=== PATIENT | female | born 1970 | race Caucasian/White ===

== ENCOUNTER 2016-10-06 13:09 | Emergency (ER) | payer BC ==
[2016-10-06 15:33] VITALS: BP 119/74
--- NOTE | 2016-10-06 15:48 | UC ---
Shoulder Pain HPI - HPI Summary HPI Summary: for past 3 days, pain in right shoulder limited rom, denies any trauma/injury. she woke up with these sx on 1/10 AM. She is rt hand dominant. she works on the computer all day every day. denies neck pain. she had numbing and tingling in the arm yesterday down to her hand and fingers but not today. She does feel weakness in the hand. she took ibuprofen 600mgs this morning with decent relief. she has not seen ortho in recent past. she did have injury to this arm many years ago as teen. Pain is described in anterior shoulder with point tenderness. denies fevers and chills. - History of Current Complaint Chief Complaint: UCUpperExtremity Stated Complaint: RIGHT SHOULDER INJURY Time Seen by Provider: 10/06/16 15:47 Hx Last Menstrual Period: 09/20/16 - Allergies/Home Medications Allergies/Adverse Reactions: Allergies Allergy/AdvReac Type Severity Reaction Status Date / Time environmental Allergy Eyes Uncoded 10/06/16 15:33 Itchy/Swollen/Red/Watery Home Medications: Home Medications Ibuprofen TAB* [Motrin TAB* 600 MG] 600 mg PO Q8H PRN 10/06/16 [History Confirmed 10/06/16] PMH/Surg Hx/FS Hx/Imm Hx Previously Healthy: Yes Endocrine History Of: Reports: Thyroid Disease - hypo Respiratory History Of: Reports: Asthma - Surgical History Surgical History: Yes Surgery Procedure, Year, and Place: right arm 1983, metal plate installed, then removed - Family History Known Family History: Negative: Diabetes - Social History Alcohol Use: Occasionally Substance Use Type: None Smoking Status (MU): Never Smoked Tobacco Review of Systems Constitutional: Negative Skin: Negative Eyes: Negative ENT: Negative Respiratory: Negative Cardiovascular: Negative Gastrointestinal: Negative Genitourinary: Negative Motor: Decreased ROM, Weakness Neurovascular: Negative Musculoskeletal: Negative Neurological: Negative Psychological: Negative All Other Systems Reviewed And Are Negative: Yes Physical Exam Triage Information Reviewed: Yes Appearance: Well-Appearing, No Pain Distress, Well-Nourished Vital Signs: Initial Vital Signs Temp 99.4 F 10/06/16 15:29 Pulse 74 10/06/16 15:29 Resp 16 10/06/16 15:29 BP 119/74 10/06/16 15:29 Pulse Ox 100 10/06/16 15:29 Vital Signs Reviewed: Yes Eye Exam: Normal ENT Exam: Normal Neck exam: Normal Neck: Positive: Supple, Nontender, No Lymphadenopathy, Other: - no tenderness over c spine. Negative: Nuchal Rigidity Respiratory Exam: Normal Respiratory: Positive: Lungs clear, Normal breath sounds, No respiratory distress Cardiovascular Exam: Normal Cardiovascular: Positive: RRR, No Murmur, Pulses Normal, Brisk Capillary Refill Abdominal Exam: Normal Abdomen Description: Positive: Nontender, Soft Musculoskeletal: Positive: Strength Limited @, ROM Limited @ - abduction and flexion to 30 degress. unable to externally rotate, internal rotation is intact. 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 + 2 B/T/BR b/l and equal. CR brisk, +2 radial b/l. skin - no erythema, no bruising., Other: - point tenderness anterior right shoulder Neurological Exam: Normal Psychological Exam: Normal Skin Exam: Normal Shoulder Course/Dx - Course Course Of Treatment: sudden right shoulder pain. xray right shoulder - negative. reviewed official report with pt. She does not wish to follow up with ortho if not necesary. I have explained to her that xray does not show tendons and soft tissue and she should f/u with ortho for further evaluation. discussed possibilites of frozen shoulder with disability, burstitis and others. she understood me well. - Differential Dx/Diagnosis Differential Diagnosis/HQI/PQRI: Arthritis, Bursitis, Rotator Cuff Injury, Sprain, Strain, Tendonitis Provider Diagnoses: right shoulder pain. Discharge - Discharge Plan Condition: Stable Disposition: HOME Patient Education Materials: Shoulder Pain (ED) Referrals: Leah Soria [Primary Care Provider] - Donavan Pennington MD [Medical Doctor] - 1 Day Additional Instructions: Ice with towel barrier, rest. Follow up with ortho as we discussed.
--- NOTE | 2016-10-06 17:37 | RAD ---
Indication: Right shoulder pain. 3 views of the right shoulder demonstrates no fracture or dislocation. No other bone or joint abnormality is identified. IMPRESSION: No fracture of the right shoulder is noted.
== END 2016-10-06 17:52 | disposition home or self-care (01) ==
LOC: UCCORT 13:09
DX: M25.511 Pain in right shoulder (principal)
CPT/HCPCS: 99211; G0463